=== PATIENT | male | born 1995 | race Two or more races ===

== ENCOUNTER 2020-08-13 10:32 | Emergency (ER) | payer SELFPAY ==
[~2020-08-13] VITALS: Ht 144.8 cm; Wt 72.6 kg
[2020-08-13 10:38] VITALS: BP 127/86
== END 2020-08-13 10:44 | disposition home or self-care (01) ==
LOC: ER 10:34
DX: H00.014 Hordeolum externum left upper eyelid (principal)

== ENCOUNTER 2021-04-23 16:53 | Emergency (ER) | payer MEDICAID ==
[~2021-04-23] VITALS: Ht 149.9 cm; Wt 68.0 kg
--- NOTE | 2021-04-23 18:27 | NUR ---
BIBS FOR C/O R KNEE PAIN/REDNESS/SWELLING X 3 DAYS, DENIES INJURY. RATES PAIN 5/10. WILL CONTINUE TO MONITOR THE PATIENT.
[2021-04-23] MEDS ORDERED: CEPH500C2 PO (19:46)
[2021-04-23] MEDS ORDERED: SULF1TAB48 PO (19:46)
[2021-04-23] MEDS ORDERED: IBUP-1957 PO (19:46)
[2021-04-23] MEDS ORDERED: CEPHALEXIN MONOHYDRATE 500 MG CAPSULE PO ONE ×2 (19:50→20:00)
[2021-04-23] MEDS ORDERED: SULFAMETH/TRIMETH 800/160 MG 1 UDTAB TABLET ONE (19:51)
[2021-04-23] MEDS ORDERED: SULFAMETH/TRIMETH 800/160 MG 1 UDTAB TABLET PO ONE (20:00)
[2021-04-23 20:06] VITALS: BP 131/76
--- NOTE | 2021-04-23 20:06 | NUR ---
Patient discharged to home in stable condition. Written and verbal after care instructions given. Patient verbalizes understanding of instruction and RX. Pt ambulated out of ED.
== END 2021-04-23 20:06 | disposition home or self-care (01) ==
LOC: ER 17:00
DX: L03.115 Cellulitis of right lower limb (principal); M76.51 Patellar tendinitis, right knee; Z60.2 Problems related to living alone; Z79.899 Other long term (current) drug therapy
CPT/HCPCS: 73564-TC